=== PATIENT | male | born 1970 | race Caucasian/White ===

== ENCOUNTER 2022-08-30 12:57 | Inpatient (IN) | payer OTHER ==
[~2022-08-30] VITALS: Ht 175.3 cm; Wt 83.9 kg
[2022-08-30] MEDS ORDERED: KETOROLAC TROMETHAMINE 30 MG/ML VIAL IV STA (13:21)
[2022-08-30 13:36] LABS: BASOPHILS # (AUTO) 0.1 (0.0-0.1); BASOPHILS % 0.5 % (0.0-1.0); EOSINOPHILS # (AUTO) 0.1 (0.0-0.4); EOSINOPHILS % 0.4 % (0.0-6.0); HEMATOCRIT 46.2 % (38.2-49.6); HEMOGLOBIN 15.6 g/dL (14.0-18.0); LYMPHOCYTES # (AUTO) 2.4 (1.0-3.2); LYMPHOCYTES % 17.3 % (18.0-39.1); MEAN CORPUSCULAR HEMOGLOBIN 32.2 pg (28-32); MEAN CORPUSCULAR HGB CONC 33.8 g/dL (31-35); MEAN CORPUSCULAR VOLUME 95.3 fL (81-99); MONOCYTES # (AUTO) 0.9 (0.2-0.8); MONOCYTES % 6.3 % (4.4-11.3); NEUTROPHILS # (AUTO) 10.6 (2.1-6.9); NEUTROPHILS % 75.1 % (38.7-80.0); PLATELET COUNT 286 x10e3/uL (140-360); RED BLOOD COUNT 4.85 x10e6/uL (4.3-5.7); RED CELL DISTRIBUTION WIDTH 11.2 % (11.7-14.4)
[2022-08-30 13:50] LABS: CLARITY,URINE HAZY (CLEAR); COLOR,URINE YELLOW (YELLOW)
[2022-08-30 13:51] LABS: BACTERIA,URINE FEW /HPF; EPITHELIAL CELLS,URINE FEW /LPF; KETONES,URINE TRACE (NEGATIVE); LEUKOCYTE ESTERASE ,URINE NEGATIVE (NEGATIVE); NITRITE,URINE NEGATIVE (NEGATIVE); PROTEIN,URINE DIPSTICK 1+ (NEGATIVE); RBC,URINE 0-5 /HPF (0-5); URINE UROBILINOGEN 1 mg/dL (0.2 - 1); WBC,URINE (MAN) 0-5 /HPF (0-5)
[2022-08-30 13:52] LABS: ALBUMIN 3.8 g/dL (3.5-5.0); AMORPHOUS SEDIMENT,URINE FEW (FEW); ANION GAP 19.3 mmol/L (8-16); CALCIUM 9.2 mg/dL (8.4-10.2); CREATININE, SERUM 1.25 mg/dL (0.72-1.25); HYALINE CASTS 0-1 (0-1); POTASSIUM 3.3 mmol/L (3.5-5.1)
[2022-08-30] MEDS ORDERED: IOPAMIDOL 370 MG/ML 100 ML INFUS..BTL INJ ONE (14:51)
[2022-08-30 17:00] LABS: INR 0.92; PARTIAL THROMBOPLASTIN TIME 23.9 seconds (23.8-35.5); PROTHROMBIN TIME 12.9 seconds (11.9-14.5)
[2022-08-30] MEDS ORDERED: SODIUM CHLORIDE 0.9% 1000ML 1,000 ML IV SCH (17:00)
[2022-08-30] MEDS: Morphine 4mg INJECTION 4 MG/ML INJ IV PRN ×2 (17:00→21:47)
[2022-08-30] MEDS: ONDANSETRON HCL INJ 2MG/ML 2ML 2 MG/ML VIAL IV PRN (17:00)
[2022-08-30] MEDS ORDERED: ACETAMINOPHEN 1000 MG/100 ML IV STA (20:08)
[2022-08-30 22:17] VITALS: BP 112/67
[2022-08-30 22:35] VITALS: BP 113/67
[2022-08-30 22:38] VITALS: BP 113/67
[2022-08-30] MEDS ORDERED: HYDRALAZINE HCL 20 MG/ML VIAL IV PRN (23:30)
[2022-08-31] VITALS (8 sets, daily range): BP systolic 101–116; BP diastolic 59–78
[2022-08-31] MEDS: METRONIDAZOLE 500MG/NS 100ML 100 ML IV SCH ×4 (00:45→22:23)
[2022-08-31] MEDS: Morphine 4mg INJECTION 4 MG/ML INJ IV PRN ×4 (00:53→22:04)
[2022-08-31] MEDS: SOD CHL 0.45%/POT CHL 20MEQ 1,000 ML IV SCH ×3 (00:54→19:11)
[2022-08-31 06:14] LABS: BASOPHILS # (AUTO) 0.1 (0.0-0.1); BASOPHILS % 0.8 % (0.0-1.0); HEMATOCRIT 38.8 % (38.2-49.6); HEMOGLOBIN 13.4 g/dL (14.0-18.0); LYMPHOCYTES # (AUTO) 0.8 (1.0-3.2); LYMPHOCYTES % 12.5 % (18.0-39.1); MEAN CORPUSCULAR HEMOGLOBIN 35.2 pg (28-32); MEAN CORPUSCULAR HGB CONC 34.5 g/dL (31-35); MONOCYTES # (AUTO) 0.6 (0.2-0.8); MONOCYTES % 8.7 % (4.4-11.3); NEUTROPHILS # (AUTO) 4.9 (2.1-6.9); NEUTROPHILS % 77.4 % (38.7-80.0); PLATELET COUNT 161 x10e3/uL (140-360); RED BLOOD COUNT 3.81 x10e6/uL (4.3-5.7); RED CELL DISTRIBUTION WIDTH 12.8 % (11.7-14.4)
[2022-08-31 06:35] LABS: MEAN CORPUSCULAR VOLUME 101.8 fL (81-99)
[2022-08-31 06:43] LABS: ANION GAP 13.9 mmol/L (8-16); CREATININE, SERUM 1.39 mg/dL (0.72-1.25); POTASSIUM 3.9 mmol/L (3.5-5.1)
[2022-08-31] MEDS ORDERED: NO CURRENT (06:44)
[2022-08-31] MEDS: ONDANSETRON HCL INJ 2MG/ML 2ML 2 MG/ML VIAL IV PRN ×2 (09:04→19:12)
[2022-08-31 09:52] LABS: BAND NEUTROPHILS % (MANUAL) 11 %; LYMPHOCYTES % (MANUAL) 8 % (19-48); METAMYELOCYTES % (MANUAL) 2 % (0-0); MONOCYTES % (MANUAL) 12 % (3.4-9.0); MYELOCYTES % (MANUAL) 1 % (0-0); NEUTROPHILS % (MANUAL) 66 % (40-74); PLATELET ESTIMATE ADEQUATE; PLATELET MORPHOLOGY COMMENT NORMAL; RBC MORPHOLOGY COMMENT NORMAL
[2022-08-31] MEDS: KETOROLAC TROMETHAMINE 30 MG/ML VIAL IV PRN ×2 (13:03→19:12)
[2022-08-31] MEDS ORDERED: ALBUTEROL SULF 0.083% NEB SOLN 3 ML NEB NEB PRN (20:45)
[2022-08-31] MEDS ORDERED: IPRATROPIUM BROMIDE 0.02% 2.5 ML NEB NEB PRN (21:00)
[2022-08-31] MEDS: IPRATROPIUM BROMIDE 0.02% 2.5 ML NEB INH SCH (21:05)
[2022-08-31] MEDS: ALBUTEROL SULF 0.083% NEB SOLN 3 ML NEB INH SCH (21:05)
[2022-08-31] MEDS: MEROPENEM 1 GM in SODIUM CHLORIDE 0.9% 100 ML IV SCH (22:06)
[2022-09-01] VITALS (7 sets, daily range): BP systolic 109–131; BP diastolic 76–85
[2022-09-01] MEDS: ALBUTEROL SULF 0.083% NEB SOLN 3 ML NEB INH SCH ×3 (01:35→18:00)
[2022-09-01] MEDS: IPRATROPIUM BROMIDE 0.02% 2.5 ML NEB INH SCH ×3 (01:35→18:00)
[2022-09-01] MEDS: Morphine 4mg INJECTION 4 MG/ML INJ IV PRN (02:46)
[2022-09-01] MEDS: ACETAMINOPHEN 1000 MG/100 ML IV PRN ×2 (03:31→20:23)
[2022-09-01 05:39] LABS: BASOPHILS # (AUTO) 0.1 (0.0-0.1); BASOPHILS % 0.4 % (0.0-1.0); EOSINOPHILS % 0.1 % (0.0-6.0); HEMATOCRIT 35.9 % (38.2-49.6); HEMOGLOBIN 12.1 g/dL (14.0-18.0); MEAN CORPUSCULAR HGB CONC 33.7 g/dL (31-35); MEAN CORPUSCULAR VOLUME 100.8 fL (81-99); MONOCYTES # (AUTO) 0.6 (0.2-0.8); MONOCYTES % 5.5 % (4.4-11.3); NEUTROPHILS # (AUTO) 9.7 (2.1-6.9); NEUTROPHILS % 84.3 % (38.7-80.0); PLATELET COUNT 168 x10e3/uL (140-360); RED BLOOD COUNT 3.56 x10e6/uL (4.3-5.7); RED CELL DISTRIBUTION WIDTH 11.9 % (11.7-14.4)
[2022-09-01 06:05] LABS: CALCIUM 7.7 mg/dL (8.4-10.2); CREATININE, SERUM 1.19 mg/dL (0.72-1.25)
[2022-09-01] MEDS: SOD CHL 0.45%/POT CHL 20MEQ 1,000 ML IV SCH (06:33)
[2022-09-01] MEDS: METRONIDAZOLE 500MG/NS 100ML 100 ML IV SCH ×3 (06:33→21:30)
[2022-09-01] MEDS: MEROPENEM 1 GM in SODIUM CHLORIDE 0.9% 100 ML IV SCH ×3 (06:34→21:31)
[2022-09-01 06:48] LABS: BAND NEUTROPHILS % (MANUAL) 2 %; LYMPHOCYTES % (MANUAL) 16 % (19-48); MONOCYTES % (MANUAL) 7 % (3.4-9.0); NEUTROPHILS % (MANUAL) 74 % (40-74); PLATELET ESTIMATE ADEQUATE; PLATELET MORPHOLOGY COMMENT NORMAL; RBC MORPHOLOGY COMMENT NORMAL
[2022-09-01] MEDS: ONDANSETRON HCL INJ 2MG/ML 2ML 2 MG/ML VIAL IV PRN (07:54)
[2022-09-01] MEDS: KETOROLAC TROMETHAMINE 30 MG/ML VIAL IV PRN ×3 (07:58→21:30)
[2022-09-01] MEDS: D5NS/KCL 20MEQ 1,000 ML IV SCH (13:04)
[2022-09-01] MEDS: ENOXAPARIN SOD INJ 40 MG/0.4 ML SYR SC SCH (17:05)
[2022-09-02] VITALS (8 sets, daily range): BP systolic 126–141; BP diastolic 81–96
[2022-09-02] MEDS: D5NS/KCL 20MEQ 1,000 ML IV SCH ×3 (01:58→16:42)
[2022-09-02] MEDS: METRONIDAZOLE 500MG/NS 100ML 100 ML IV SCH ×3 (05:02→22:43)
[2022-09-02] MEDS: MEROPENEM 1 GM in SODIUM CHLORIDE 0.9% 100 ML IV SCH ×3 (05:02→23:11)
[2022-09-02 05:55] LABS: BASOPHILS % 0.4 % (0.0-1.0); EOSINOPHILS # (AUTO) 0.1 (0.0-0.4); EOSINOPHILS % 1.1 % (0.0-6.0); HEMATOCRIT 36.8 % (38.2-49.6); HEMOGLOBIN 12.2 g/dL (14.0-18.0); LYMPHOCYTES # (AUTO) 0.8 (1.0-3.2); LYMPHOCYTES % 6.8 % (18.0-39.1); MEAN CORPUSCULAR HGB CONC 33.2 g/dL (31-35); MEAN CORPUSCULAR VOLUME 96.6 fL (81-99); MONOCYTES # (AUTO) 0.7 (0.2-0.8); NEUTROPHILS # (AUTO) 9.2 (2.1-6.9); NEUTROPHILS % 83.1 % (38.7-80.0); PLATELET COUNT 195 x10e3/uL (140-360); RED BLOOD COUNT 3.81 x10e6/uL (4.3-5.7); RED CELL DISTRIBUTION WIDTH 11.6 % (11.7-14.4)
[2022-09-02] MEDS: ALBUTEROL SULF 0.083% NEB SOLN 3 ML NEB INH SCH ×4 (06:00→18:00)
[2022-09-02] MEDS: IPRATROPIUM BROMIDE 0.02% 2.5 ML NEB INH SCH ×4 (06:00→18:00)
[2022-09-02 06:17] LABS: ANION GAP 12.8 mmol/L (8-16); CREATININE, SERUM 0.84 mg/dL (0.72-1.25); POTASSIUM 3.8 mmol/L (3.5-5.1)
[2022-09-02] MEDS: Morphine 4mg INJECTION 4 MG/ML INJ IV PRN (06:50)
[2022-09-02] MEDS: ONDANSETRON HCL INJ 2MG/ML 2ML 2 MG/ML VIAL IV PRN (06:51)
[2022-09-02 08:19] LABS: EOSINOPHILS % (MANUAL) 1 % (0-7); LYMPHOCYTES % (MANUAL) 9 % (19-48); MONOCYTES % (MANUAL) 4 % (3.4-9.0); MYELOCYTES % (MANUAL) 1 % (0-0); NEUTROPHILS % (MANUAL) 85 % (40-74); PLATELET ESTIMATE ADEQUATE; PLATELET MORPHOLOGY COMMENT NORMAL; RBC MORPHOLOGY COMMENT NORMAL
[2022-09-02] MEDS: ENOXAPARIN SOD INJ 40 MG/0.4 ML SYR SC SCH (16:42)
[2022-09-02] MEDS: ACETAMINOPHEN 325 MG TAB PO PRN ×2 (17:03→23:12)
[2022-09-03 01:18] VITALS: BP 131/95
[2022-09-03] MEDS: D5NS/KCL 20MEQ 1,000 ML IV SCH (03:00)
[2022-09-03 05:06] VITALS: BP 123/84
[2022-09-03] MEDS: METRONIDAZOLE 500MG/NS 100ML 100 ML IV SCH (05:38)
[2022-09-03] MEDS: ALBUTEROL SULF 0.083% NEB SOLN 3 ML NEB INH SCH ×3 (06:00→14:00)
[2022-09-03] MEDS: IPRATROPIUM BROMIDE 0.02% 2.5 ML NEB INH SCH ×3 (06:00→14:00)
[2022-09-03] MEDS: MEROPENEM 1 GM in SODIUM CHLORIDE 0.9% 100 ML IV SCH ×2 (06:18→13:17)
[2022-09-03 08:44] VITALS: BP 138/93
[2022-09-03 09:21] VITALS: BP 138/93
[2022-09-03 12:27] VITALS: BP 148/95
== END 2022-09-03 17:09 | disposition home or self-care (01) | DRG 871 ==
LOC: ER 14:54 → ERHOLD 16:50 → MED/SURG3 20:45
PROVIDERS: ADMIT Internal Medicine; ATTEND Internal Medicine
PROC: 8E0ZXY6 Isolation (ICD-10-PCS; principal; 2022-08-30)
PROC: 3E03329 Introduction of Other Anti-infective into Peripheral Vein, Percutaneous Approach (ICD-10-PCS; 2022-08-30)
DX: A41.9 Sepsis, unspecified organism (principal); U07.1 COVID-19; K57.20 Diverticulitis of large intestine with perforation and abscess without bleeding; Z88.0 Allergy status to penicillin; F41.9 Anxiety disorder, unspecified
CPT/HCPCS: 36415; 36569; 71045; 74177; 80048; 80053; 81001; 85025; 85610; 85730; 87040; 94640; 94799; 99252; 99284; J0696; J1650; J1885; J2185; J2270; J2405; J2543; J7030; J7050; Q9967